=== PATIENT | male | born 1985 | race Two or more races ===

== ENCOUNTER 2022-10-05 00:20 | Emergency (ER) | payer OTHER ==
[~2022-10-05] VITALS: Ht 170.2 cm; Wt 78.0 kg
[2022-10-05] MEDS ORDERED: HYDROcodone-ACET 5/325MG TAB PO ONE (00:45)
[2022-10-05 00:52] VITALS: BP 127/78
[2022-10-05] MEDS ORDERED: BACITRACIN TOP OINT 1 UD PKG TOP ONE (02:45)
[2022-10-05] MEDS ORDERED: cefTRIAXone SOD 1,000 MG VL IM ONE (02:45)
[2022-10-05] MEDS ORDERED: CEPH-510 PO (02:53)
[2022-10-05] MEDS ORDERED: IBUP800T27 PO (02:53)
== END 2022-10-05 03:57 | disposition home or self-care (01) ==
LOC: ER 00:20
DX: S61.205A Unspecified open wound of left ring finger without damage to nail, initial encounter (principal); Z79.1 Long term (current) use of non-steroidal anti-inflammatories (NSAID); Z79.899 Other long term (current) drug therapy; W26.8XXA Contact with other sharp object(s), not elsewhere classified, initial encounter; Y93.89 Activity, other specified; Y92.89 Other specified places as the place of occurrence of the external cause; Y99.0 Civilian activity done for income or pay
CPT/HCPCS: 73140; 96372; 99283; J0696